=== PATIENT | male | born 1945 | race Caucasian/White ===

== ENCOUNTER 2016-09-17 14:20 | Outpatient (CLI) | payer MEDICARE ==
[~2016-09-17] VITALS: Ht 175.3 cm; Wt 82.7 kg
[~2016-09-17 14:20] MED LIST: AMLO5TAB4 PO; ASP81CT GT; ATOR40TA70 PO; ATR20T PO; BISO1TAB3 PO; CYCL10TA9 PO; DIPH25CA79 PO; ENAL20TA PO; EP1A IM; FAMO-119 PO; LISI20TA PO; MELO15TA39 PO; OXYC-471 PO; PRD20T PO; TRAM50TA2 PO
--- OUTSIDE RECORDS SUMMARY | 2016-09-17 14:24 | XMS REPORT | Continuity of Care Document ---
Author Author [facility] Organization [facility] Address Unknown Phone Unavailable Care Team Providers Care Pinion Polisher Name Role Phone KENY ESCALANTE MD PCP Insurance Providers Payer Name Policy Number Subscriber Name Relationship Wps Medicare [id number] Spencer Atwood 18 Self / Same As Patient Blue Cross [facility] Supp [id number] Spencer Atwood 19 Self / Same As Patient Advance Directives Directive Response Recorded Date/Time Advance Directives No 05/07/16 4:52am Health Care Power of Elementary School Principal No 05/07/16 4:52am Organ Donor No 05/07/16 4:52am Resuscitation Status Full Code 05/07/16 4:52am Chief Complaint and Reason for Visit Chief Complaint ANGIO EDEMA Reason for Visit Angioedema Problems Active Problems Medical Problem Onset Date Status Angioedema Unknown Acute Medications Current Home Medications Medication Dose Units Route Directions Days/Qty Instructions Start Date Cyclobenzaprine Hcl 10 Mg 10 Mg Oral Every 8HRS as needed for Muscle Spasms 05/08/16 Tramadol Hcl 50 Mg 50-100 Mg Oral Every 4HRS as needed for Pain 02/15 Oxycodone Hcl/Acetaminophen 1 Each 1 Tab Oral Every 4HRS as needed for Pain 05/08/16 Atorvastatin Calcium 40 Mg 20 Mg Oral Daily 30 TAKES 1/2 OF A (40 MG) TABLET RESTART ON 05/19/16 05/09/16 Meloxicam 15 Mg 15 Mg Oral Daily@1700 30 DO NOT START BACK TAKING UNTIL PREDNISONE RX IS FINISHED - TAKE WITH FOOD 05/09/16 Prednisone 20 Mg 20 Mg Oral As Directed 25 40MG TID X2DAYS, 20MG TID X2DAYS, 20MG BID X2DAYS, 10MG BID X2DAYS, 10MG DAILY X2DAYS THEN STOP TAKE WITH FOOD 05/09/16 Famotidine 20 Mg 20 Mg Oral Twice A Day 20 05/09/16 Diphenhydramine Hcl 25 Mg 25 Mg Oral Every 4HRS 60 TAKE Q4HR X2 DAYS THEN Q6HR X2 DAYS, THEN Q8HR X4 DAYS THEN TAKE NEEDED IF CONTINUED ALLERGIC SYMPTOMS 05/09/16 Epinephrine Hcl 1 Mg/Ml 0.3 Mg Intramusc As Needed as needed for Angioedema 1 05/09/16 Amlodipine Besylate 5 Mg 2.5 Mg Oral Daily 30 05/09/16 Past Home Medications Medication Directions Ordered Status Lisinopril 20 Mg Tablet, 20 Mg Oral Daily 03/10/13 Discontinued Atorvastatin Calcium 20 Mg Tablet, 1 Each Oral Daily 03/10/13 Discontinued Enalapril Maleate 20 Mg Tablet, 10 Mg Oral Daily 03/10/13 Discontinued Aspirin 81 Mg Chew, 81 Mg G Tube Daily 03/10/13 Discontinued Bisoprolol Fumarate/Hctz 1 Each Tablet, 1 Tab Oral Daily 05/08/16 Discontinued Atorvastatin Calcium 40 Mg Tablet, 20 Mg Oral Daily 05/08/16 Discontinued Meloxicam 15 Mg Tablet, 15 Mg Oral Daily@1700 05/08/16 Discontinued Social History Social History Problem Response Recorded Date/Time Alcohol Use Regular Use 05/07/2016 4:52am Recreational Drug Use No 05/07/2016 4:52am Recent Foreign Travel No 05/07/2016 4:52am Recent Infectious Disease Exposure No 05/07/2016 4:52am Hospitalization with Isolation Denies 05/09/2016 9:47am Sexually Transmitted Disease No 05/07/2016 5:14pm HIV/AIDS No 05/07/2016 5:14pm Smoking Status Current Everyday Smoker 05/07/2016 4:52am Do you dip or chew tobacco? No 05/03/2015 8:30am Type Used Cigarettes 05/09/2016 9:47am Recent Hopitalizations Y 3 weeks ago today R total knee 05/07/2016 4:52am Sexually Transmitted Disease No 05/07/2016 5:14pm Hospitalization with Isolation Denies 05/09/2016 9:47am Query Response Start Date Stop Date Smoking Status Current Everyday Smoker Hospital Discharge Instructions Patient Instructions Physician Instructions Prescription: RX on Chart Patient Instructions: APPT WITH [facility] ON 05/21/16 @1245 CALL FOR ANY CONCERNS KEEP EPINEPHRINE AT THE HOUSE FOR THE NEXT 2-[address] OF WORK IN CASE OF ALLERGIC REACTION GIVE 0.3MG IM X 1 AND GO TO THE HOSPITAL IF YOU HAVE ANY SWELLING OF THE MOUTH OR TONGUE OR THROAT. Resume Normal Activity: Yes Discharge Diet: Regular Diet Drink 6-8 Glasses of Fluid/Day: Yes Return to The Hospital For: KEEP EPINEPHRINE AT THE HOUSE FOR THE NEXT 2-[address] OF WORK IN CASE OF ALLERGIC REACTION GIVE 0.3MG IM X 1 AND GO TO THE HOSPITAL IF YOU HAVE ANY SWELLING OF THE MOUTH OR TONGUE OR THROAT. Symptoms to Reoprt to : Fever Over 101 Degrees F, Pain/Pressure in Chest, Pain/Pressure in Shoulder, Questions/Concerns, Shortness of Breath For Problems or Questions: Contact Your Physician, Go to Emergency Room Infection Signs and Symptoms: Temperature Above 101 F Care Plan Patient Instructions:: APPT WITH [facility] ON 05/21/16 @1245CALL FOR ANY CONCERNS KEEP EPINEPHRINE AT THE HOUSE FOR THE NEXT 2-[address] OFWORK IN CASE OF ALLERGIC REACTION GIVE 0.3MG IM X 1 AND GO TO THE HOSPITALIF YOU HAVE ANY SWELLING OF THE MOUTH OR TONGUE OR THROAT. Plan of Care Discharge Date 05/09/16 9:47am Disposition 01 HOME, SELF-CARE Instructions/Education Provided MEDICATION REACTION Prescriptions See Medication Section Referrals [facility] 05/21/16 @12:45 (Unspecified) - 05/21/16 Reason(s) for Referral: Angioedema Care Plan and Goals See Discharge Instructions Section Functional Status Query Response Date Recorded Patient Orientation Person Place Time Situation Normal For Age May 08, 2016 9:31am Patient Orientation Person Place Time Situation May 09, 2016 9:47am Comprehension Ability Understands Concepts May 08, 2016 12:00pm Allergies, Adverse Reactions, Alerts Allergen Type Severity Reaction Status Last Updated Angiotensin-converting enzyme inhibitor Allergy Severe ANAPHYLAXIS Active 05/07/16 Immunizations No immunization records. Vital Signs Acute Vital Signs Vital Response Date/Time Temperature (Fahrenheit) 95.6 degrees F (97.6 - 99.5) 05/09/2016 9:41am Temperature (Calculated Celsius) 35.17805 degrees C (36.4 - 37.5) 05/09/2016 9:39am Temperature Source Tympanic 05/09/2016 9:41am Pulse Rate (adult) 59 bpm (60 - 90) 05/09/2016 9:41am Respiratory Rate 20 bpm (12 - 24) 05/09/2016 9:41am O2 Sat by Pulse Oximetry 95 % (88 - 100) 05/09/2016 9:41am Blood Pressure 160/81 mm Hg 05/09/2016 9:41am Blood Pressure Mean 107 mm Hg 05/09/2016 6:00am Pain Numeric Pain Scale 1 05/09/2016 9:41am Height (Feet) 5 feet 05/07/2016 4:52am Height (Inches) 9.00 inches 05/07/2016 4:52am Height (Calculated Centimeters) 175.599072 cm 05/07/2016 4:52am Weight (Pounds) 190 pounds 05/08/2016 6:00am Weight (Ounces) 9.0 oz 05/08/2016 6:00am Weight (Calculated Grams) 50608.697 gm 05/08/2016 6:00am Weight (Calculated Kilograms) 86.115889 kilograms 05/08/2016 6:00am Calculated BMI 28.5 05/07/2016 4:52am Capillary Refill Capillary Refill Less Than 3 Seconds 05/09/2016 7:57am Results Laboratory Results Test Name Result Units Flags Reference Collection Date/Time Result Date/ Time Comments White Blood Count 8.2 10^3/uL 4.3-11.0 05/08/2016 3:51am 05/08/2016 4: 53am Red Blood Count 2.68 10^6/uL L 4.35-5.85 05/08/2016 3:51am 05/08/2016 4: 53am Hemoglobin 8.9 G/DL L 13.3-17.7 05/08/2016 3:51am 05/08/2016 4:53am Hematocrit 27 % L 40-54 05/08/2016 3:51am 05/08/2016 4:53am Mean Corpuscular Volume 102 FL H 80-99 05/08/2016 3:51am 05/08/2016 4: 53am Mean Corpuscular Hemoglobin 33 PG 25-34 05/08/2016 3:51am 05/08/2016 4: 53am Mean Corpuscular Hemoglobin Concent 33 G/DL 32-36 05/08/2016 3:51am 02/2016 4:53am Red Cell Distribution Width 14.9 % H 10.0-14.5 05/08/2016 3:512015 4:53am Platelet Count 312 10^3/uL 130-400 05/08/2016 3:5105/08/2016 4:53am Mean Platelet Volume 9.6 FL 7.4-10.4 05/08/2016 3:51am 05/08/2016 4: 53am Neutrophils (%) (Auto) 57 % 42-75 05/07/2016 2:5005/07/2016 4:31am Lymphocytes (%) (Auto) 26 % 12-44 05/07/2016 2:5005/07/2016 4:31am Monocytes (%) (Auto) 13 % H 0-12 05/07/2016 2:5005/07/2016 4:31am Eosinophils (%) (Auto) 4 % 0-10 05/07/2016 2:5005/07/2016 4:31am Basophils (%) (Auto) 1 % 0-10 05/07/2016 2:5005/07/2016 4:31am Neutrophils # (Auto) 5.1 X 10^3 1.8-7.8 05/07/2016 2:5005/07/2016 4: 31am Lymphocytes # (Auto) 2.3 X 10^3 1.0-4.0 05/07/2016 2:5005/07/2016 4: 31am Monocytes # (Auto) 1.1 X 10^3 H 0.0-1.0 05/07/2016 2:5005/07/2016 4: 31am Eosinophils # (Auto) 0.3 10^3/uL 0.0-0.3 05/07/2016 2:5005/07/2016 4 :31am Basophils # (Auto) 0.1 10^3/uL 0.0-0.1 05/07/2016 2:5005/07/2016 4: 31am Sodium Level 139 MMOL/L 135-145 05/08/2016 3:5105/08/2016 5:16am Potassium Level 4.2 MMOL/L 3.6-5.0 05/08/2016 3:5105/08/2016 5:16am Chloride Level 107 MMOL/L 98-107 05/08/2016 3:5105/08/2016 5:16am Carbon Dioxide Level 20 MMOL/L L 21-32 05/08/2016 3:5105/08/2016 5: 16am Anion Gap 12 MMOL/L 5-14 05/08/2016 3:5105/08/2016 5:16am Blood Urea Nitrogen 15 MG/DL 7-18 05/08/2016 3:5105/08/2016 5:16am Creatinine 0.72 MG/DL 0.60-1.30 05/08/2016 3:5105/08/2016 5:16am BUN/Creatinine Ratio 21 05/08/2016 3:5105/08/2016 5:16am Estimat Glomerular Filtration Rate > 60 05/08/2016 3:512015 5:16am GFR INTERPRETIVE DATA UNITS FOR ESTIMATED GFR (eGFR): mL/min/1.73 M2 REFERENCE RANGE FOR ESTIMATED GFR (eGFR) eGFR NORMAL eGFR >60 MODERATELY DECREASED eGFR 30-59 SEVERLY DECREASED eGFR 15-29 KIDNEY FAILURE <15 (OR DIALYSIS) Glucose Level 154 MG/DL H 70-105 05/08/2016 3:5105/08/2016 5:16am Calcium Level 8.8 MG/DL 8.5-10.1 05/08/2016 3:5105/08/2016 5:16am Phosphorus Level 3.2 MG/DL 2.3-4.7 05/08/2016 3:5105/08/2016 5:16am Magnesium Level 2.3 MG/DL 1.8-2.4 05/08/2016 3:5105/08/2016 5:16am Total Bilirubin 0.9 MG/DL 0.1-1.0 05/08/2016 3:5105/08/2016 5:16am Alkaline Phosphatase 64 U/L 40-136 05/08/2016 3:5105/08/2016 5:16am Aspartate Amino Transf (AST/SGOT) 28 U/L 5-34 05/08/2016 3:512015 5:16am Alanine Aminotransferase (ALT/SGPT) 21 U/L 0-55 05/08/2016 3:51am 05/08 5:16am Total Protein 5.7 G/DL L 6.4-8.2 05/08/2016 3:51am 05/08/2016 5:16am Albumin 3.1 G/DL L 3.2-4.5 05/08/2016 3:51am 05/08/2016 5:16am Microbiology Results Procedure Source Result Collection Date/Time Result Date/Time MRSA Screen Nasal MRSA not isolated 05/07/2016 5:27am 05/08/2016 4:21pm Procedures No known history of procedures. Encounters Encounter Location Arrival/Admit Date Discharge/Depart Date Attending Provider Admitted Inpatient [facility] 05/07/16 4:20am KENY ESCALANTE MD Recent Diagnosis Angioedema
[2016-09-17] MEDS ORDERED: AMLO5TAB2 PO (14:35)
[2016-09-17] MEDS ORDERED: MAGN500C15 PO (14:35)
[2016-09-17] MEDS ORDERED: CHOL10003 PO (14:35)
[2016-09-17] MEDS ORDERED: VITA1TAB17 PO (14:35)
[2016-09-17] MEDS ORDERED: ATOR20TA49 PO (14:35)
[2016-09-17 14:39] VITALS: BP 123/75
[2016-09-17 14:59] LABS: BASOPHILS # (AUTO) 0.1 10^3/uL (0.0-0.1); BASOPHILS % (AUTO) 1 % (0-10); EOSINOPHILS # (AUTO) 0.2 10^3/uL (0.0-0.3); EOSINOPHILS % (AUTO) 2 % (0-10); LYMPHOCYTES # (AUTO) 2.6 X 10^3 (1.0-4.0); LYMPHOCYTES % (AUTO) 32 % (12-44); MEAN CORPUSCULAR HEMOGLOBIN 32 PG (25-34); MEAN CORPUSCULAR HGB CONC 34 G/DL (32-36); MEAN CORPUSCULAR VOLUME 95 FL (80-99); MEAN PLATELET VOLUME 9.9 FL (7.4-10.4); MONOCYTES # (AUTO) 0.8 X 10^3 (0.0-1.0); MONOCYTES % (AUTO) 10 % (0-12); NEUTROPHILS # (AUTO) 4.5 X 10^3 (1.8-7.8); NEUTROPHILS % (AUTO) 56 % (42-75); PLATELET COUNT 202 10^3/uL (130-400); RED BLOOD COUNT 4.67 10^6/uL (4.35-5.85); RED CELL DISTRIBUTION WIDTH 14.4 % (10.0-14.5); WHITE BLOOD COUNT 8.1 10^3/uL (4.3-11.0)
[2016-09-20] MEDS ORDERED: HYDR-3730 PO (09:46)
== END 2016-09-17 15:13 | disposition home or self-care (01) ==
LOC: PREOP 14:20
PROVIDERS: ATTEND Surgery Pediatric Surgery
DX: Z01.812 Encounter for preprocedural laboratory examination (principal); Z11.2 Encounter for screening for other bacterial diseases; K40.90 Unilateral inguinal hernia, without obstruction or gangrene, not specified as recurrent
CPT/HCPCS: 36415; 85025; 87081

== ENCOUNTER 2016-09-20 07:01 | Day surgery (SDC) | payer MEDICARE ==
[~2016-09-20] VITALS: Ht 175.3 cm; Wt 82.7 kg
[~2016-09-20 07:01] MED LIST changes: +AMLO5TAB2 PO; +ATOR20TA49 PO; +CHOL10003 PO; +MAGN500C15 PO; +VITA1TAB17 PO
[2016-09-20] MEDS ORDERED: BUP/EPI 0.5% 1:200,000 (SENSORCAINE) 30 ML VIAL ONE (07:04)
--- OUTSIDE RECORDS SUMMARY | 2016-09-20 07:04 | XMS REPORT | Continuity of Care Document ---
Author Author [facility] Organization [facility] Address Unknown Phone Unavailable Care Team Providers Care Vessel Slagman Name Role Phone KENY ESCALANTE MD PCP Insurance Providers Payer Name Policy Number Subscriber Name Relationship Wps Medicare [id number] Spencer Atwood 18 Self / Same As Patient Blue Cross [facility] Supp [id number] Spencer Atwood 19 Self / Same As Patient Advance Directives Directive Response Recorded Date/Time Advance Directives No 05/07/16 4:52am Health Care Power of Machine Container Washer No 05/07/16 4:52am Organ Donor No 05/07/16 [...] MEDICATION REACTION Prescriptions See Medication Section Referrals [facility] 05/21/16 @12:45 (Unspecified) - 05/21/16 Reason(s) for [...] - 99.5) 05/09/2016 9:41am Temperature (Calculated Celsius) 35.92838 degrees C (36.4 - 37.5) 05/09/2016 9:39am [...] 9.00 inches 05/07/2016 4:52am Height (Calculated Centimeters) 175.570964 cm 05/07/2016 4:52am Weight (Pounds) 190 pounds 05/08/2016 6:00am Weight (Ounces) 9.0 oz 05/08/2016 6:00am Weight (Calculated Grams) 55877.697 gm 05/08/2016 6:00am Weight (Calculated Kilograms) 86.870749 kilograms 05/08/2016 6:00am Calculated BMI 28.5 05/07/2016 [...] Discharge/Depart Date Attending Provider Admitted Inpatient [facility] 05/07/16 4:20am KENY ESCALANTE MD Recent Diagnosis Angioedema
--- OUTSIDE RECORDS SUMMARY | 2016-09-20 07:05 | XMS REPORT | Continuity of Care Document ---
Author Author [facility] Organization [facility] Address Unknown Phone Unavailable Care Team Providers Care Machine Cloth Trimmer Name Role Phone KENY ESCALANTE MD PCP Insurance Providers Payer Name Policy Number Subscriber Name Relationship Wps Medicare [id number] Spencer Atwood 18 Self / Same As Patient Blue Cross [facility] Supp [id number] Spencer Atwood 19 Self / Same As Patient Advance Directives Directive Response Recorded Date/Time Advance Directives No 05/07/16 4:52am Health Care Power of Termination Clerk No 05/07/16 4:52am Organ Donor No 05/07/16 [...] MEDICATION REACTION Prescriptions See Medication Section Referrals [facility] 05/21/16 @12:45 (Unspecified) - 05/21/16 Reason(s) for [...] - 99.5) 05/09/2016 9:41am Temperature (Calculated Celsius) 35.44947 degrees C (36.4 - 37.5) 05/09/2016 9:39am [...] 9.00 inches 05/07/2016 4:52am Height (Calculated Centimeters) 175.391401 cm 05/07/2016 4:52am Weight (Pounds) 190 pounds 05/08/2016 6:00am Weight (Ounces) 9.0 oz 05/08/2016 6:00am Weight (Calculated Grams) 47397.697 gm 05/08/2016 6:00am Weight (Calculated Kilograms) 86.439525 kilograms 05/08/2016 6:00am Calculated BMI 28.5 05/07/2016 [...] Discharge/Depart Date Attending Provider Admitted Inpatient [facility] 05/07/16 4:20am KENY ESCALANTE MD Recent Diagnosis Angioedema
[2016-09-20] MEDS ORDERED: NORMAL SALINE (BAXTER MINI) 50 ML IV ONE (07:09)
[2016-09-20] MEDS ORDERED: ceFAZolin 1,000 MG (ANCEF) VIAL ONE (07:09)
[2016-09-20] MEDS ORDERED: MIDAZOLAM 2 MG/2 ML (VERSED) VIAL ONE (07:09)
[2016-09-20] MEDS ORDERED: ceFAZolin 1 GM/NS 50 ML IVPB IV ONE ×2 (07:15)
[2016-09-20] MEDS ORDERED: LIDOCAINE PF 2% 10 ML (XYLOCAINE) AMP ONE (07:18)
[2016-09-20] MEDS ORDERED: proPOfol 200 MG/20 ML (DIPRIVAN) VIAL IV ONE (07:18)
[2016-09-20] MEDS ORDERED: ONDANSETRON 4 MG/2 ML (SDV) Z0FRAN ONE (07:18)
[2016-09-20] MEDS ORDERED: ROCURONIUM 50 MG/5 ML (ZEMURON) VIAL IV ONE (07:18)
[2016-09-20] MEDS ORDERED: SUCCINYLCHOLINE INJ 100 MG/5 ML SYR ONE (07:18)
[2016-09-20] MEDS ORDERED: fentaNYL INJECTION 250 MCG/5 ML AMP ONE (07:19)
[2016-09-20] MEDS ORDERED: SEVOFLURANE (ULTANE) 15 ML INHAL SOLN ONE ×5 (07:19→09:25)
[2016-09-20] MEDS ORDERED: LACTATED RINGERS 1,000 ML IV PRN (07:20)
[2016-09-20] MEDS ORDERED: MIDAZOLAM 2 MG/2 ML (VERSED) VIAL IV ONE (07:30)
[2016-09-20 07:32] VITALS: BP 131/84
--- NOTE | 2016-09-20 07:51 | Progress Note-Pre Operative ---
Pre-Operative Progress Note H&P Reviewed The H&P was reviewed, patient examined and no changes noted. Date H&P Reviewed: Sep 20, 2016 Time H&P Reviewed: 07:45 Pre-Operative Diagnosis: Symptomatic Right inguinal hernia PETER HUDSON APRN Sep 20, 2016 7:51 am
[2016-09-20] MEDS ORDERED: DEXAMETHASONE PF 10 MG/ML (DECADRON) VIAL ONE (07:57)
[2016-09-20] MEDS ORDERED: KETOROLAC 30 MG/ML VIAL ONE (07:57)
[2016-09-20] MEDS ORDERED: ONDANSETRON 4 MG/2 ML (SDV) Z0FRAN IVP PRN ×2 (08:00→10:00)
[2016-09-20] MEDS ORDERED: morphine INJ 10 MG/ML 1ML (SYR OR VIAL) IVP PRN (08:00)
[2016-09-20] MEDS ORDERED: ACETAMINOPHEN 325 MG TABLET/CAPLET (TYLENOL) PO PRN (08:00)
[2016-09-20] MEDS ORDERED: HYDROcodone/APAP 5 MG/325 MG (LORTAB) TAB PO ONE (08:00)
[2016-09-20] MEDS ORDERED: LACTATED RINGERS 1,000 ML IV ONE (09:03)
--- NOTE | 2016-09-20 09:45 | Progress Note-Post Operative ---
Post-Operative Progess Note Reforestation Worker Roland Salinas GENETICS TEACHER Pre-Operative Diagnosis Symptomatic Right inguinal hernia Post-Operative Diagnosis reducible right indirect inguinal hernia Post-Op Procedure Note Date of Procedure: Sep 20, 2016 Name of Procedure: laparoscopic right inguinal hernia repair with mesh. Anesthesia Type GET Estimated blood loss (mL): GITA Longo MD Sep 20, 2016 9:45 am
[2016-09-20] MEDS ORDERED: HYDR-3730 PO (09:46)
--- NOTE | 2016-09-20 09:47 | Discharge Inst-Surgical ---
D/C Lap Instructions-NEHAL New, Converted, or Re-Newed RX: RX on Chart Follow Up Appt in 2 weeks Activity as tolerated No driving for 24 hours No driving while on pain medications Incentive Spirometry use every 2 hours while awake Regular Diet Symptoms to Report: Fever over 101 degree F, Nausea/Vomiting Infection Signs and Symptoms to report: Increased redness, Foul odor of wound, Increased drainage Bathing instructions: May shower Operative Area Clean/Dry; Keep incision clean/dry If any problems/questions: Contact your physician or go to Emergency Room GITA CALVERT MD Sep 20, 2016 9:47 am
[2016-09-20] MEDS ORDERED: MEPERIDINE (DEMEROL) INJ 50 MG/ML IVP PRN (10:00)
[2016-09-20] MEDS ORDERED: PROMETHAZINE INJ 25 MG/ML (PHENERGAN) AMP IVP PRN (10:00)
[2016-09-20] MEDS: morphine INJ 10 MG/ML 1ML (SYR OR VIAL) IVP PRN ×2 (10:02→10:07)
[2016-09-20] MEDS ORDERED: HYDROmorphone (DILAUDID) 2 MG/ML VIAL ONE (10:16)
[2016-09-20] MEDS: HYDROmorphone (DILAUDID) 2 MG/ML VIAL IVP PRN ×2 (10:24→10:34)
[2016-09-20] MEDS ORDERED: HYDROcodone/APAP 5 MG/325 MG (LORTAB) TAB ONE (11:03)
[2016-09-20 11:05] VITALS: BP 119/74
[2016-09-20 11:35] VITALS: BP 120/70
[2016-09-20 12:05] VITALS: BP 117/71
[2016-09-20 12:40] VITALS: BP 117/71
--- NOTE | 2016-09-21 11:10 | OPERATIVE REPORT ---
PROCEDURE PHYSICIAN: GITA SERVIN DATE OF PROCEDURE: 09/20/2016 ATTENDING PRIMARY CARE PHYSICIAN: Dr. Deborah Painter. PREOPERATIVE DIAGNOSIS: Symptomatic reducible right inguinal hernia. POSTOPERATIVE DIAGNOSIS: Symptomatic reducible right inguinal hernia. PROCEDURE: Laparoscopic right inguinal hernia repair with mesh. SURGEON: Dr. Servin PARTICLE BOARD SUPERVISOR: Roland Salinas APRN. ANESTHESIA: General endotracheal. ESTIMATED BLOOD LOSS: Minimal. FINDINGS: Right indirect inguinal hernia with nothing within the hernia sac. There was no left inguinal hernia present. There was sigmoid diverticulosis without inflammation identified. DISPOSITION: The patient tolerated the procedure well. 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 He reported he initially noticed this approximately a month ago and then noticed that the bulge increased in size over time and become more painful. He states that with lifting this is worse as well. He also had a left inguinal hernia in 1976 which was repaired open. PROCEDURE: The patient was brought to the operating room and laid supine on the table. After adequate IV pain and sedative medications and general endotracheal intubation the abdomen and perineum were prepped and draped in the standard surgical fashion. 0.5% Marcaine with epinephrine was then used to anesthetize the overlying skin in the infraumbilical rim and a small crescent shaped skin incision made using a 15 blade. A sharp towel clamp was used to tent the abdominal wall anteriorly and a Veress needle inserted with low opening pressures the 0 mmHg and the abdomen was then insufflated to 15 mmHg pressure. The Veress needle removed and a 10 mm Xcel trocar placed followed by a 10 mm, 45 degrees angle laparoscope, visualizing the peritoneal cavity. A four-quadrant abdominal exploration was performed. There was a right indirect inguinal hernia identified with nothing within the hernia sac. There was no left inguinal hernia component. There was a moderate sigmoid diverticulosis identified with no signs of diverticulitis. Under direct visualization we then proceeded to place bilateral 5 mm ports after the skin and peritoneum were anesthetized using 0.5% Marcaine and epinephrine and a small transverse skin incision made using a 15 blade. The patient was then placed in Trendelenburg position. The peritoneal lining was then opened laterally towards the conjoined tendon using a Sonicision. We then proceeded in the medial direction until the Car's ligament was identified. We then proceeded with our inferior dissection of the peritoneal lining including the entire hernia sac using blunt dissection as well as Sonicision. The cord and its contents were identified and spared throughout the process. Good hemostasis was observed as well. A Bard 3-D max polypropylene mesh was then placed through the 10 mm port. The mesh was then tacked using a secure strap to Car's ligament medially and to the conjoined tendon laterally. The peritoneal lining was then placed over the entire mesh and a few tacks placed to hold it in place. Good hemostasis was observed. The 10 mm port site, fascia and peritoneum were then closed under direct visualization using a Jason-Magaly device and 0 Vicryl suture. The abdomen was desufflated and the remaining ports removed. All skin incisions were closed using 4-0 Monocryl running subcuticular sutures. Wounds were then cleaned and covered Dermabond. The patient tolerated the procedure well. We will start IV and oral pain medication as well as a clear liquid diet. Once he is tolerating clears, has good pain control with oral pain medications and ambulating well, we will discharge him home. He will be instructed no heavy lifting or exertion for the next 6 weeks. Job ID: [id number] Dictated Date: 09/20/2016 09:54:13 Furniture Polisher Date: 09/21/2016 10:59:56 / james CARDOSO
== END 2016-09-20 12:40 | disposition home or self-care (01) ==
LOC: SDC 07:01
PROVIDERS: ATTEND Surgery Pediatric Surgery
DX: K40.90 Unilateral inguinal hernia, without obstruction or gangrene, not specified as recurrent (principal); K57.30 Diverticulosis of large intestine without perforation or abscess without bleeding
CPT/HCPCS: 94664

== ENCOUNTER → 2018-03-06 | Outpatient (CLI) | payer MEDICARE ==
[~2018-03-06] MED LIST changes: +HYDR-3730 PO
--- NOTE | 2018-03-06 09:11 | Diagnostic Imaging Report ---
PROCEDURE: US Hepatic (Liver). TECHNIQUE: Multiple real-time grayscale images were obtained over the right upper quadrant in various projections. INDICATION: Elevated liver enzymes. FINDINGS: The liver is enlarged at 20 cm. There is diffuse increased echogenicity throughout the liver consistent with hepatic steatosis. The portal vein is patent and demonstrates normal direction of flow. There is a tiny 11 mm cyst involving the right lobe of the liver anteriorly. The gallbladder is without stones or sludge. No wall thickening or pericholecystic fluid is identified. No biliary duct dilatation is seen. Pancreas is poorly visualized. The right kidney is unremarkable. There is no ascites. IMPRESSION: 1. Hepatomegaly and hepatic steatosis. 2. Small hepatic cyst. 3. No evidence of cholelithiasis or acute cholecystitis. Dictated by: Dictated on workstation # [id number]
== END ==
LOC: RAD 08:19
PROVIDERS: ATTEND Family Medicine
DX: K76.0 Fatty (change of) liver, not elsewhere classified (principal); K76.89 Other specified diseases of liver
CPT/HCPCS: 76705

== ENCOUNTER → 2018-11-24 | Outpatient (CLI) | payer MEDICARE ==
[~2018-11-24] MED LIST changes: -AMLO5TAB2 PO; +AMLO5TAB9 PO
--- NOTE | 2018-11-24 11:07 | Diagnostic Imaging Report ---
PROCEDURE: US Hepatic (Liver). TECHNIQUE: Multiple real-time grayscale images were obtained over the right upper quadrant in various projections. INDICATION: Hepatomegaly. Comparison is made with prior liver ultrasound from 03/06/2018. Liver remains enlarged at 20 cm. There continues to be increased echogenicity throughout liver consistent with hepatic steatosis. Small cyst previously noted in the left lobe is stable at 11 mm. No new liver mass is identified. The portal vein is patent and shows normal direction of flow. Gallbladder is without stones or sludge. No wall thickening or biliary duct dilatation is seen. Visualized pancreas is unremarkable. Kidneys unremarkable apart from a 1.9 cm cyst. No calculi or hydronephrosis is identified. There is no ascites. IMPRESSION: 1. Stable hepatomegaly and hepatic steatosis. Small left lobe of liver cyst is also stable. 2. Right renal cyst. Study is otherwise unremarkable. Dictated by: Dictated on workstation # [id number]
== END ==
LOC: RAD 08:54
PROVIDERS: ATTEND Nurse Practitioner Family
DX: K76.0 Fatty (change of) liver, not elsewhere classified (principal); N28.1 Cyst of kidney, acquired
CPT/HCPCS: 76705

== ENCOUNTER → 2019-06-26 | Outpatient (CLI) | payer MEDICARE ==
--- NOTE | 2019-06-26 11:55 | Diagnostic Imaging Report ---
PROCEDURE: US Thyroid. TECHNIQUE: Multiple real-time grayscale images were obtained of the thyroid in various projections. INDICATION: Abnormal thyroid labs and difficulty swallowing. COMPARISON: No prior studies are available for comparison. FINDINGS: Right lobe of the thyroid measures 4.8 x 1.8 x 1.8 cm and the left lobe measures 4.7 x 1.6 x 1.6 cm. Isthmus is approximately 3 mm in thickness. Left lung shows fairly homogeneous echotexture. There is a tiny hypoechoic nodule in the lower pole left lobe measuring approximately 4 mm in size, perhaps a small colloid cyst. Complex mixed solid and cystic nodule in the right lobe upper pole is noted measuring 1.4 x 0.7 x 1.3 cm. No microcalcifications are seen. There is a small probable calcification in the lower pole right lobe approximately 3 mm x 4 mm in size. No other masses are identified. IMPRESSION: Bilateral thyroid nodules. Largest is a mixed solid and cystic nodule in the upper pole right lobe. Follow-up ultrasound of the thyroid in six months is recommended to confirm stability. Dictated by: Dictated on workstation # [id number]
== END ==
LOC: RAD 10:29
PROVIDERS: ATTEND Family Medicine
DX: E04.2 Nontoxic multinodular goiter (principal); R94.6 Abnormal results of thyroid function studies
CPT/HCPCS: 76536

== ENCOUNTER → 2019-07-01 | Outpatient (CLI) | payer MEDICARE ==
[~2019-07-01] MED LIST changes: +BARIUM SUSPENSION 105% (LIQUID POLIBAR PLUS) 240 ML/DOSE PO ONE; +BARIUM SUSPENSION 2.1% (VANILLA SILQ) 450 ML PO ONE; +BARIUM SUSPENSION 60% (LIQUID EZ PAQUE) 240 ML DOSE PO ONE; +CATHETER FLUSH 10 ML SYR IV PRN; +HOLD METFORMIN - RECEIVED CONTRAST 20 ML VIAL IV SCH; +IOHEXOL 350 MG/ML 100 ML (OMNIPAQUE 350) VIAL IV ONE; +NS 100 ML (IVPB) BAG IV ONE; -TRAM50TA2 PO; +TRM50T PO
--- NOTE | 2019-07-01 10:20 | Diagnostic Imaging Report ---
PROCEDURE: CT chest, abdomen, and pelvis with contrast. TECHNIQUE: Multiple contiguous axial images were obtained through the chest, abdomen, and pelvis after the administration of intravenous contrast. Auto Exposure Controls were utilized during the CT exam to meet ALARA standards for radiation dose reduction. INDICATION: Elevated liver function tests as well as dysphasia and weight loss. COMPARISON: Correlation is made with prior CT chest from 02/05/[address] abdomen and pelvis from 12/09/2013. CT CHEST: Tiny nodule in the right lobe of the thyroid is noted. No axillary lymphadenopathy is identified. No hilar or mediastinal lymphadenopathy is detected. No pericardial or pleural fluid is detected. Pulmonary parenchymal evaluation shows small circumscribed nodule in the left lower lobe measuring 10 mm. This is new since the CT study from 2012 and is indeterminate. The remainder of the lung burk are clear. No infiltrates are detected. CT ABDOMEN AND PELVIS: There is diffuse heterogeneity throughout the liver. There is a small circumscribed density in the anterior right lobe of the liver measuring 12 mm. But this was not definitely seen on prior exam but may represent a small cyst. Gallbladder is unremarkable. No biliary duct dilatation is seen. The pancreas and spleen are unremarkable. No adrenal mass is detected. Kidneys are unremarkable apart from a nonobstructing calculus in the lower pole right kidney measuring approximately 5 mm. No hydronephrosis is seen. Aorta is heavily calcified but non-aneurysmal. No central retroperitoneal or mesenteric lymphadenopathy is seen. There is perihepatic and perisplenic ascites. There is a moderate amount of free fluid in the pelvis as well. Bowel loops appear to be nonobstructed. There is diverticulosis of the sigmoid but no evidence of acute diverticulitis. Bladder is unremarkable. No definite pelvic lymphadenopathy is seen. The bony structures are unremarkable. IMPRESSION: 1. Nonspecific circumscribed 10 mm noncalcified nodule in the left lower lobe. This is new since CT chest study from 2012. Consideration could be given to performance of a PET/CT study to evaluate for hypermetabolism. No other pulmonary parenchymal masses or evidence of thoracic lymphadenopathy is seen. 2. There is diffuse liver parenchymal heterogeneity without evidence of a discrete mass apart from a probable small cyst in the right lobe. There is also abdominal and pelvic ascites, moderate. Findings most suggestive of hepatic dysfunction. No splenomegaly is seen. 3. Uncomplicated diverticulosis. Dictated by: Dictated on workstation # [id number]
--- NOTE | 2019-07-01 11:01 | Diagnostic Imaging Report ---
INDICATION: Dysphagia and weight loss. The patient ingested effervescent crystals as well as thin and thick barium and imaging of the esophagus was performed. 1 minute and 5 seconds of fluoroscopic time was utilized. Preliminary radiograph of the chest is unremarkable. Esophagus has a fairly smooth in contour. No mass or stricture is seen. There is generalized esophageal dysmotility noted. No reflux is identified. There is a small hiatal hernia. IMPRESSION: Esophageal dysmotility and small hiatal hernia. No mass is detected. Dictated by: Dictated on workstation # [id number]
== END ==
LOC: RAD 09:14
PROVIDERS: ATTEND Family Medicine
DX: K57.30 Diverticulosis of large intestine without perforation or abscess without bleeding (principal); K44.9 Diaphragmatic hernia without obstruction or gangrene; K22.8 Other specified diseases of esophagus; R18.8 Other ascites; R91.1 Solitary pulmonary nodule; R63.4 Abnormal weight loss; Z72.0 Tobacco use
CPT/HCPCS: 71260; 74177; 74220

== ENCOUNTER → 2019-07-07 | Outpatient (CLI) | payer MEDICARE ==
[~2019-07-07] MED LIST changes: -BARIUM SUSPENSION 105% (LIQUID POLIBAR PLUS) 240 ML/DOSE PO ONE; -BARIUM SUSPENSION 2.1% (VANILLA SILQ) 450 ML PO ONE; -BARIUM SUSPENSION 60% (LIQUID EZ PAQUE) 240 ML DOSE PO ONE; -CATHETER FLUSH 10 ML SYR IV PRN; -HOLD METFORMIN - RECEIVED CONTRAST 20 ML VIAL IV SCH; -IOHEXOL 350 MG/ML 100 ML (OMNIPAQUE 350) VIAL IV ONE; -NS 100 ML (IVPB) BAG IV ONE; +TRAM50TA2 PO; -TRM50T PO
--- NOTE | 2019-07-09 08:43 | Diagnostic Imaging Report ---
PET/CT. INDICATION: Lung nodule. EXAMINATION: After intravenous administration of 13.35 mCi of [id number], a series of overlapping emission and transmission PET images was obtained. In the coronal, transaxial and sagittal planes, the area imaged extended from the skull base through the upper thighs. FINDINGS: There are no prior PET/CT examinations available for comparison. The recent CT chest, abdomen/pelvis exam of 07/01/2019 noted a nonspecific circumscribed 10 mm noncalcified nodule in the left lower lobe. That nodule has developed since the previous CT chest exam of 2012. On this exam, the nodule is again identified and does not appear to have changed significantly. The nodule is not hypermetabolic and consequently most likely benign. Even so, a three-month follow-up CT chest exam would be recommended for continued evaluation. There is no other hypermetabolic activity seen to suggest the presence of malignancy. Physiologic activity is evident in the brain, the kidneys, the bowel, and the bladder. The CT images do show that in the interval since the prior study, mild bibasilar atelectasis/infiltrate and small bilateral pleural effusions have developed. The abdominopelvic ascites noted on the prior exam is again evident and no different. There is still no mass or abscess identified. IMPRESSION: 1. The nodule in the left lung base is not hypermetabolic and most likely benign. Recommendations, as above. 2. There is no other hypermetabolic activity to suggest the presence of malignancy. 3. A small amount of atelectasis/infiltrate and fluid has developed in both lung bases since the prior exam. The abdominopelvic ascites noted on the previous study is again evident and essentially no different. Dictated by: Dictated on workstation # [id number]
== END ==
LOC: RAD 08:54
PROVIDERS: ATTEND Family Medicine
DX: R91.1 Solitary pulmonary nodule (principal)

== ENCOUNTER → 2019-11-23 | Outpatient (CLI) | payer MEDICARE ==
[~2019-11-23] MED LIST changes: -TRAM50TA2 PO; +TRM50T PO
--- NOTE | 2019-11-23 09:44 | Diagnostic Imaging Report ---
CLINICAL INDICATION: Patient has chronic low-back pain. EXAM: MRI of the lumbar spine performed without IV contrast. Sagittal T2, sagittal T1, sagittal T2 fat sat, and axial T2. COMPARISON: MRI of the lumbar spine without contrast dated 04/21/2008. FINDINGS: There is no acute lumbar spine fracture or dislocation. There is progression of mild dextroscoliosis of the lumbar spine. There are Modic type I/type II degenerative signal changes involving the L2-L3 endplate regions. There is Modic type I degenerative signal changes involving the right L5-S1 endplates. There is no significant change to the perineural cysts seen in the bilateral S2-S3 sacral region. The visualized portions of the distal thoracic spinal cord, conus medullaris, and cauda equina nerve roots are unremarkable. The conus medullaris tip is seen at the L1-L2 intervertebral level. There is interval development of a 2.3 cm simple appearing cyst involving the medial posterior midportion of the right kidney. There is no significant paraspinal soft tissue abnormality. There are progressive hypertrophic spurs involving the lumbar spine, most pronounced at the L1-L2 and L2-L3 levels. L1-L2: There is development of diffuse disc bulge and loss of intervertebral disc height. There is progression of hypertrophic disc spurs extending anteriorly and toward the left. There is progression of moderate bilateral facet arthropathy. There is mild bilateral neuroforaminal narrowing which has progressed. There is no significant central canal narrowing. L2-L3: There is progression of diffuse disc bulge, severe loss of intervertebral disc height, endplate irregularity, and hypertrophic far left lateral disc spurs. There is severe left neuroforaminal narrowing and mild right neuroforaminal narrowing which has progressed. There is moderate central canal narrowing which has progressed. L3-L4: There is moderate bilateral facet arthropathy which has progressed with hypertrophic changes on the left side. There is progression of diffuse disc bulge with mild to moderate loss of intervertebral disc height. There is development of ligamenta flavum buckling. There is mild to moderate central canal narrowing which has progressed. There is moderate right neuroforaminal narrowing and severe left neuroforaminal narrowing which has progressed. L4-L5: There is development of a mild diffuse disc bulge and progression of severe bilateral facet arthropathy/hypertrophy. There is interval mild central canal narrowing. There is moderate to severe bilateral neuroforaminal narrowing which has progressed. L5-S1: There is development of a subtle posterior disc bulge. There is mild bilateral facet arthropathy. There is no significant central canal narrowing. There is [id number] right neuroforaminal narrowing and no significant left neuroforaminal narrowing. IMPRESSION: 1. 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 This is described in detail above. 2. Interval development of a simple right renal cyst. Dictated by: Dictated on workstation # [id number]
== END ==
LOC: RAD 08:11
PROVIDERS: ATTEND Family Medicine
DX: M47.816 Spondylosis without myelopathy or radiculopathy, lumbar region (principal); N28.1 Cyst of kidney, acquired
CPT/HCPCS: 72148

== ENCOUNTER → 2020-02-02 | Outpatient (CLI) | payer MEDICARE ==
--- NOTE | 2020-02-02 11:55 | Diagnostic Imaging Report ---
PROCEDURE: US Thyroid. TECHNIQUE: Multiple real-time grayscale images were obtained of the thyroid in various projections. INDICATION: Thyroid nodules. FINDINGS: The prior thyroid ultrasound exam performed on 06/26/2019 noted bilateral thyroid nodules including a 1.4 x 0.7 x 1.3 cm mixed solid and cystic nodule in the superior pole of the right lobe. The PET/CT exam performed on 07/07/2019 failed to show any hypermetabolic activity associated with the thyroid gland. On this exam that nodule is again identified and now measures 1.5 x 0.9 x 1.4 cm. It does not seem to have changed significantly in the interval since the prior study. I rate this as a TI-RADS 2. Most likely this is a benign process. If further evaluation is desired, then a short-term (six-month) follow-up ultrasound exam would be recommended. There is no other discrete solid or cystic mass within either lobe. The thyroid gland is prominent with the right lobe measuring 4.6 x 2.3 x 2.0 cm and the left lobe estimated to be 4.8 x 1.3 x 1.3 cm (normal gland size 4-5 x 2.2 cm or less). IMPRESSION: 1. The mixed solid and cystic nodule in the upper pole of the right lobe of thyroid seen previously is again evident and measures minimally larger than the prior study. Most likely this is a benign process. Recommendations as above. 2. The overall appearance of the thyroid gland is otherwise stable. Dictated by: Dictated on workstation # [id number]
== END ==
LOC: RAD 08:55
PROVIDERS: ATTEND Family Medicine
DX: E04.2 Nontoxic multinodular goiter (principal)
CPT/HCPCS: 76536

== ENCOUNTER → 2020-08-04 | Outpatient (CLI) | payer MEDICARE ==
[~2020-08-04] MED LIST changes: +AMLO-250 PO; -AMLO5TAB9 PO
--- NOTE | 2020-08-04 11:12 | Diagnostic Imaging Report ---
PROCEDURE: US Thyroid. TECHNIQUE: Multiple real-time grayscale images were obtained of the thyroid in various projections. INDICATION: Thyroid nodule. COMPARISON: 02/02/2020 and 06/26/2019 FINDINGS: The right lobe of thyroid gland measures 4.9 x 2.3 x 1.6 cm. Complex part cystic and part solid ovoid nodule which is wider than tall is again noted within the mid right thyroid lobe measuring 1.5 x 1.4 x 0.9 cm. This has not significant changed since the prior examinations. No new right thyroid nodule. The left lobe of thyroid gland measures 4.8 x 1.7 x 1.6 cm. Tiny sub-3 mm hypoechoic nodules are again identified and unchanged. No new nodules. The isthmus is unremarkable. IMPRESSION: Complex part cystic and part solid Ti RADS 3 nodule, not significantly changed from the prior examination. Recommend a follow-up ultrasound in one year to ensure stability. No new thyroid nodules. Dictated by: Dictated on workstation # [id number]
== END ==
LOC: RAD 09:58
PROVIDERS: ATTEND Family Medicine
DX: E04.2 Nontoxic multinodular goiter (principal)
CPT/HCPCS: 76536

== ENCOUNTER 2021-08-06 20:49 | Emergency (ER) | payer MEDICARE ==
[~2021-08-06] VITALS: Ht 175 cm; Wt 86.0 kg
[~2021-08-06 20:49] MED LIST changes: +BISO-2 PO; -BISO1TAB3 PO; +CYCL10TA25 PO; -CYCL10TA9 PO; -OXYC-471 PO; +OXYC1TAB11 PO
--- NOTE | 2021-08-06 21:32 | ED General ---
General Chief Complaint: Fever-Adult/Adol Stated Complaint: FEVER/BODY ACHES/CHILLS Nursing Triage Note: PT AMB TO ER WITH C/O FEVER OF 103 AT HOME AND HE VOMITTED ONCE THIS AFTERNOON Source of Information: Patient Exam Limitations: No Limitations History of Present Illness Date Seen by Provider: Aug 06, 2021 Time Seen by Provider: 21:30 Initial Comments Patient is a 75-year-old male who presents ED with fever. Reports temperature 103 at home. Denies take anything medication. Patient had some shivering which has improved. Vomited 1 time of clear liquid. Denies any chest pain, abdominal pain, cough, shortness of breath, dysuria, hematuria, headache, dizziness. Patient was recommended come to ED for that one temperature change. Denies of any current treatment for cancer. Allergies and Home Medications Allergies Coded Allergies: LEONARDA Inhibitors (Verified Allergy, Severe, ANAPHYLAXIS, 05/07/16) GENERALIZED HIVES, ANGIOEDEMA Patient Home Medication List Home Medication List Reviewed: Yes Amlodipine Besylate (Amlodipine Besylate) 5 Mg Tablet, 5 MG PO DAILY, (Reported) Entered as Reported by: SAMIA CALIXTO on 09/17/16 1435 Atorvastatin Calcium (Lipitor) 20 Mg Tablet, 20 MG PO DAILY, (Reported) Entered as Reported by: SAMIA CALIXTO on 09/17/16 143 Cholecalciferol (Vitamin D3) (Vitamin D3) 1,000 Unit Tablet, 1,000 UNIT PO DAILY, (Reported) Entered as Reported by: SAMIA CALIXTO on 09/17/16 1435 Epinephrine HCl (Epinephrine) 1 Mg/Ml Soln, 0.3 MG IM PRN PRN for ANGIOEDEMA Prescribed by: KENY ESCALANTE on 05/09/16 0855 Hydrocodone/Acetaminophen (Lortab 7.5-325 mg Tablet) 1 Each Tablet, 1-2 EACH PO Q4H Prescribed by: GITA CALVERT on 09/20/16 0946 Magnesium Oxide (Magnesium) 500 Mg Capsule, 500 MG PO DAILY, (Reported) Entered as Reported by: SAMIA CALIXOT on 09/17/16 1435 Vitamin B Complex (Vitamin B Complex) 1 Each Tablet, 1 EACH PO DAILY, (Reported) Entered as Reported by: SAMIA CALIXTO on 09/17/16 1435 Review of Systems Review of Systems Constitutional: No dizziness; fever; No malaise, No weakness EENTM: No hearing loss, No ear pain, No eye pain Respiratory: No cough, No orthopnea, No phlegm, No short of breath Gastrointestinal: No abdominal pain, No diarrhea, No nausea, No vomiting Genitourinary: No decreased output, No dysuria, No frequency Musculoskeletal: No back pain, No joint pain Skin: No change in color, No change in hair/nails, No dryness Psychiatric/Neurological: Denies Headache, Denies Numbness, Denies Paresthesia Past Mykrhsh-Iktgyp-Xeuqnn Hx Patient Social History Tobacco Use?: Yes Tobacco type used: Cigarettes Smoking Status: Current Everyday Smoker Substance use?: No Alcohol Use?: Yes Alcohol type: Beer Alcohol Frequency: Rarely Pt feels they are or have been: Yes Immunizations Up To Date Tetanus Booster (TDap): Less than 5yrs PED Vaccines UTD: Yes Influenza Vaccine Up-to-Date: Yes; Up-to-Date First/Initial COVID19 Vaccinat: OCT 2020 Second COVID19 Vaccination Bal: OCTOBER 2020 COVID19 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: [employer] Seasonal Allergies Seasonal Allergies: Yes Past Medical History Surgery/Hospitalization HX: HLD, GLAUCOMA, POSS COPD Tonsillectomy High Cholesterol, Hypertension Reproductive Disorders: No Sexually Transmitted Disease: No HIV/AIDS: No Benign Prostatic Hyperpl, Prostate Problems Gastroesophageal Reflux, Chronic Constipation, Hemorrhoids, Polyps Degenerate Disk Disease, Arthritis, Chronic Back Pain Cataract Loss of Vision: Denies Hearing Impairment: Denies Adverse Reaction/Blood Tranf: No (N/A) Family Medical History No Pertinent Family Hx Physical Exam Vital Signs Vital Signs - First Documented 08/06/21 21:14 Temp 37.2 Pulse 96 Resp 18 B/P (MAP) 139/77 (97) Pulse Ox 96 O2 Delivery Room Air Capillary Refill : Less Than 3 Seconds Height, Weight, BMI Height: 5'9.00" Weight: 182lbs. 5.0oz. [id number]; 28.00 BMI Method:Stated General Appearance: No Apparent Distress, WD/WN HEENT: PERRL/EOMI, TMs Normal, Normal ENT Inspection, Pharynx Normal Neck: Full Range of Motion, Normal Inspection, Non Tender, Supple Respiratory: Chest Non Tender, Lungs Clear, Normal Breath Sounds, No Accessory Muscle Use, No Respiratory Distress Cardiovascular: Regular Rate, Rhythm, No Edema, No Gallop, No JVD Gastrointestinal: Normal Bowel Sounds, No Organomegaly, No Pulsatile Mass, Non Tender Back: Normal Inspection, No Vertebral Tenderness Extremity: Normal Capillary Refill, Normal Inspection, Normal Range of Motion, Non Tender Progress/Results/Core Measures Suspected Sepsis SIRS Temperature: Pulse: 96 Respiratory Rate: 18 Laboratory Tests 08/06/21 21:18: White Blood Count 11.3H Blood Pressure 139 /77 Mean: 97 Laboratory Tests 08/06/21 21:18: Creatinine 1.03, Platelet Count 137, Total Bilirubin 0.7 Results/Orders Lab Results Laboratory Tests Test 08/06/21 21:18 08/06/21 21:19 Range/Units White Blood Count 11.3 H 4.3-11.0 10^3/uL Red Blood Count 5.41 4.30-5.52 10^6/uL Hemoglobin 16.5 13.3-17.7 g/dL Hematocrit 48 40-54 % Mean Corpuscular Volume 89 80-99 fL Mean Corpuscular Hemoglobin 31 25-34 pg Mean Corpuscular Hemoglobin Concent 34 32-36 g/dL Red Cell Distribution Width 14.6 H 10.0-14.5 % Platelet Count 137 130-400 10^3/uL Mean Platelet Volume 10.0 9.0-12.2 fL Immature Granulocyte % (Auto) 0 % Neutrophils (%) (Auto) 85 H 42-75 % Lymphocytes (%) (Auto) 7 L 12-44 % Monocytes (%) (Auto) 7 0-12 % Eosinophils (%) (Auto) 0 0-10 % Basophils (%) (Auto) 0 0-10 % Neutrophils # (Auto) 9.5 H 1.8-7.8 10^3/uL Lymphocytes # (Auto) 0.8 L 1.0-4.0 10^3/uL Monocytes # (Auto) 0.8 0.0-1.0 10^3/uL Eosinophils # (Auto) 0.1 0.0-0.3 10^3/uL Basophils # (Auto) 0.0 0.0-0.1 10^3/uL Immature Granulocyte # (Auto) 0.0 0.0-0.1 10^3/uL Neutrophils % (Manual) 78 % Lymphocytes % (Manual) 10 % Monocytes % (Manual) 12 % Percent Immature Platelet Fraction 2.7 0.0-7.6 % Blood Morphology Comment NORMAL Sodium Level 135 135-145 MMOL/L Potassium Level 4.1 3.6-5.0 MMOL/L Chloride Level 105 98-107 MMOL/L Carbon Dioxide Level 17 L 21-32 MMOL/L Anion Gap 13 5-14 MMOL/L Blood Urea Nitrogen 14 7-18 MG/DL Creatinine 1.03 0.60-1.30 MG/DL Estimat Glomerular Filtration Rate 71 BUN/Creatinine Ratio 14 Glucose Level 112 H 70-105 MG/DL Calcium Level 8.9 8.5-10.1 MG/DL Corrected Calcium 8.7 8.5-10.1 MG/DL Total Bilirubin 0.7 0.1-1.0 MG/DL Aspartate Amino Transf (AST/SGOT) 16 5-34 U/L Alanine Aminotransferase (ALT/SGPT) 15 0-55 U/L Alkaline Phosphatase 62 40-136 U/L Total Protein 7.6 6.4-8.2 GM/DL Albumin 4.3 3.2-4.5 GM/DL Influenza Type A (RT-PCR) Not Detected Not Detecte Influenza Type B (RT-PCR) Not Detected Not Detecte SARS-CoV-2 RNA (RT-PCR) Not Detected Not Detecte My Orders Orders - MEGHNA MELO PA Cbc With Automated Diff (08/06/21 21:28) Influenza A And B By Pcr (08/06/21 21:28) Covid 19 Inhouse Test (08/06/21 21:28) Comprehensive Metabolic Panel (08/06/21 21:29) Chest 1 View, Ap/Pa Only (08/06/21 21:28) Manual Differential (08/06/21 21:18) Vital Signs/I&O 08/06/21 08/06/21 21:14 22:22 Temp 37.2 37.2 Pulse 96 87 Resp 18 18 B/P (MAP) 139/77 (97) 119/69 Pulse Ox 96 96 O2 Delivery Room Air Room Air Capillary Refill : Less Than 3 Seconds Blood Pressure Mean: 97 Departure Communication (Admissions) Patient states he had a episode of tremoring, shakes today. Patient was taking Crestor. Denies history of similar shakes. Patient was aware of the shakes. No history of seizures. No focal neural deficits. He did vomit once today and had a temperature as high as 103 at home according to . Patient on arrival is no acute distress. Denies chest pain, cough, shortness of breath, abdominal pain, dysuria, headache, dizziness. Patient lab work shows slightly elevated white blood count 11.3. Slight increase in neutrophils. He is afebrile. Chemistry unremarkable. Chest x-ray unremarkable. Denies of any urinary symptoms. Refused urinalysis at this time. He states he feels well and will continue monitoring symptoms outpatient Narinder. I strongly recommend returning if any change in symptoms for further evaluation. Unclear etiology of the mariia moring or shakes however if symptoms do develop to return back to ED for further evaluation. No surgical abdomen. Patient may be developing a underlying infection however unclear etiology. Impression Primary Impression: Fever in adult Disposition: 01 HOME, SELF-CARE Condition: Stable Departure-Patient Inst. Decision time for Depature: 22:05 Referrals: KENY ESCALANTE MD (PCP/Family) Primary Care Physician Patient Instructions: Fever, Adult ED Add. Discharge Instructions: Recommend follow-up with your PCP in 2 to 3 days for evaluation. Continue with anti-inflammatories. If any change in symptoms recommend return back to ED. All discharge instructions reviewed with patient and/or family. Voiced understanding. MEGHNA MELO Aug 06, 2021 21:32
[2021-08-06 21:36] LABS: HEMOGLOBIN 16.5 g/dL (13.3-17.7); MONOCYTES # (AUTO) 0.8 10^3/uL (0.0-1.0)
[2021-08-06 21:38] LABS: BASOPHILS % (AUTO) 0 % (0-10); EOSINOPHILS # (AUTO) 0.1 10^3/uL (0.0-0.3); EOSINOPHILS % (AUTO) 0 % (0-10); HEMATOCRIT 48 % (40-54); LYMPHOCYTES # (AUTO) 0.8 10^3/uL (1.0-4.0); LYMPHOCYTES % (AUTO) 7 % (12-44); MEAN CORPUSCULAR HEMOGLOBIN 31 pg (25-34); MEAN CORPUSCULAR HGB CONC 34 g/dL (32-36); MEAN CORPUSCULAR VOLUME 89 fL (80-99); MONOCYTES % (AUTO) 7 % (0-12); NEUTROPHILS # (AUTO) 9.5 10^3/uL (1.8-7.8); NEUTROPHILS % (AUTO) 85 % (42-75); PLATELET COUNT 137 10^3/uL (130-400); WHITE BLOOD COUNT 11.3 10^3/uL (4.3-11.0)
--- NOTE | 2021-08-06 21:49 | Diagnostic Imaging Report ---
EXAMINATION: Chest 1 view. HISTORY: Cough. Fever. COMPARISON: 05/08/2016. FINDINGS: The lung volumes are normal. No focal consolidation is seen. No large pleural effusion or pneumothorax is seen. The cardiomediastinal silhouette is normal in size and contour. No acute osseous abnormality is seen. IMPRESSION: No acute pleuroparenchymal process. Dictated by: Dictated on workstation # [id number]
[2021-08-06 21:50] LABS: ALBUMIN 4.3 GM/DL (3.2-4.5); BILIRUBIN,TOTAL 0.7 MG/DL (0.1-1.0); CALCIUM 8.9 MG/DL (8.5-10.1); CREATININE SERUM 1.03 MG/DL (0.60-1.30); POTASSIUM 4.1 MMOL/L (3.6-5.0); TOTAL PROTEIN 7.6 GM/DL (6.4-8.2)
[2021-08-06 21:57] LABS: LYMPHOCYTES % (MANUAL) 10 %; MONOCYTES % (MANUAL) 12 %; NEUTROPHILS % (MANUAL) 78 %; RBC MORPH NORMAL
[2021-08-06 22:22] VITALS: BP 119/69
== END 2021-08-06 22:22 | disposition home or self-care (01) ==
LOC: EDUNIT# 20:49 → ER 20:52
DX: R50.9 Fever, unspecified (principal); I10 Essential (primary) hypertension; F17.210 Nicotine dependence, cigarettes, uncomplicated; E78.00 Pure hypercholesterolemia, unspecified; G89.29 Other chronic pain; M54.9 Dorsalgia, unspecified; Z20.822 Contact with and (suspected) exposure to COVID-19; Z79.899 Other long term (current) drug therapy; Z79.891 Long term (current) use of opiate analgesic
CPT/HCPCS: 36415; 71045; 80053; 85007; 85027; 87636

== ENCOUNTER → 2021-08-07 | Outpatient (CLI) | payer MEDICARE ==
--- NOTE | 2021-08-07 11:35 | Diagnostic Imaging Report ---
PROCEDURE: US Thyroid. TECHNIQUE: Multiple Real-time grayscale images were obtained of the thyroid in various projections. INDICATION: History of thyroid nodule. COMPARISON: 08/04/2020. FINDINGS: The right lobe measures 4.5 x 2.2 x 1.7 cm. The left lobe measures 4.9 x 1.8 x 1.9 cm. There is a complex nodule in the right lobe midportion which is well-circumscribed. This has a predominantly anechoic center with peripheral isoechoic rim which is somewhat irregular in appearance. No definite calcification has developed. This measures 1.8 x 1.6 x 1 cm. The left lobe is homogeneous. IMPRESSION: Nodule in the right mid thyroid is again demonstrated. This shows increasing anechoic characteristics with slight increase in size. This likely represents a degenerating adenoma. TI-RADS 3 Dictated by: Dictated on workstation # [id number]
== END ==
LOC: RAD 11:00
PROVIDERS: ATTEND Family Medicine
DX: E04.1 Nontoxic single thyroid nodule (principal)
CPT/HCPCS: 76536

== ENCOUNTER → 2022-02-13 | Outpatient (CLI) | payer MEDICARE ==
--- NOTE | 2022-02-13 13:16 | Diagnostic Imaging Report ---
PROCEDURE: US Thyroid. TECHNIQUE: Multiple Real-time grayscale images were obtained of the thyroid in various projections. INDICATION: Thyroid nodule, followup. COMPARISON: Correlation is made with the prior thyroid ultrasound from 08/07/2021. FINDINGS: The right lobe of the thyroid measures 5.0 x 2.2 x 2.2 cm and the left lobe measures 4.8 x 1.7 x 1.7 cm. The isthmus is 4 mm in thickness. A mixed solid and cystic nodule of the mid right lobe of the thyroid is stable to perhaps slightly smaller in size measuring 16 x 10 x 16 mm. No new mass is detected. IMPRESSION: Stable right lobe thyroid nodule when compared with the exam from 08/07/2021. Dictated by: Dictated on workstation # [id number]
== END ==
LOC: RAD 09:28
PROVIDERS: ATTEND Nurse Practitioner Family
DX: E04.1 Nontoxic single thyroid nodule (principal)
CPT/HCPCS: 76536

== ENCOUNTER → 2022-04-02 | Outpatient (CLI) | payer MEDICARE ==
--- NOTE | 2022-04-02 14:23 | Diagnostic Imaging Report ---
Indication: Hip pain EXAMINATION: Pelvis 04/02/2022. FINDINGS: Single view pelvis. There is atherosclerotic disease with phleboliths in the pelvis. Remaining soft tissues unremarkable. There are no fractures or dislocations. Mild degenerative changes seen in both hips. IMPRESSION: 1. Chronic findings. No acute osseous abnormality. Dictated by: Dictated on workstation # [id number]
== END ==
LOC: RAD 13:23
PROVIDERS: ATTEND Nurse Practitioner Family
DX: M16.0 Bilateral primary osteoarthritis of hip (principal)
CPT/HCPCS: 72170